=== PATIENT | male | born 1995 | race Caucasian/White ===

== ENCOUNTER 2022-05-21 23:38 | Observation (INO) | payer BC, OTHER ==
[2022-05-22] MEDS ORDERED: Acetaminophen 325 MG Tab PO PRN (13:48)
[2022-05-22] MEDS ORDERED: Ondansetron 4 MG Tab.DIS PO PRN (13:48)
[2022-05-22] MEDS ORDERED: Nicotine Polacrilex 2 MG Gum CHEW PRN (20:19)
[2022-05-22] MEDS ORDERED: Nicotine 14 MG/24 Hr Patch TRDERM SCH (20:30)
== END 2022-05-23 06:45 | disposition home or self-care (01) ==
LOC: JD.ED 23:38 → JD.MS 05-22 11:41
PROVIDERS: ADMIT Internal Medicine; ATTEND Internal Medicine
DX: T51.1X1A Toxic effect of methanol, accidental (unintentional), initial encounter (principal); Z72.0 Tobacco use
CPT/HCPCS: 36415; 80048; 80053; 80143; 80179; 80306; 80307; 80320; 81001; 82803; 83605; 83930; 85025; 85610; 85730; 93005; 96365; 99285; A9270; G0378; J1451; 93010; 99291